=== PATIENT | female | born 1965 | race African-American/Black ===

== ENCOUNTER 2018-04-20 17:33 | Inpatient (IN) ==
[2018-04-20] MEDS ORDERED: NS 1,000 ML IV ONE (18:11)
[2018-04-20] MEDS ORDERED: SODIUM CHLORIDE 0.9% INJ ONE (18:12)
[2018-04-20] MEDS ORDERED: PROTONIX IV ONE (18:12)
[2018-04-20 18:14] LABS: BASO# 0.02 X1000 (0.0-0.2); BASO% 0.2 % (0.0-0.8); EOS# 0.14 X1000 (0.0-0.7); EOS% 1.5 % (0.0-10.0); HEMATOCRIT 24.1 % (37.0-47.0); HEMOGLOBIN 7.4 g/dL (12.0-16.0); IMM GRAN# 0.04 X1000 (0.0-0.04); IMM GRAN% 0.4 % (0.0-0.5); LYMPH# 4.29 X1000 (1.2-3.4); LYMPH% 44.6 % (20.5-51.1); MCH 26.5 PG (27-31); MCHC 30.7 g/dL (33-37); MCV 86.4 FL (81-99); MONO# 0.56 X1000 (0.11-0.59); MONO% 5.8 % (1.7-9.3); MPV 10.5 FL (7.4-10.4); NEUT# 4.56 X1000 (1.4-6.5); NEUT% 47.5 % (42.2-75.2); PLT 229 X1000 (130-400); RBC 2.79 XMIL (4.2-5.4); RDW 13.7 % (11.5-14.5); WBC 9.61 X1000 (4.8-10.8)
[2018-04-20 18:21] LABS: AGAP 10; ALB/GLOB RATIO 1.2; ALBUMIN 3.8 g/dL (3.5-5.0); ALKALINE PHOSPHATASE 98 U/L (32-104); BUN 23 mg/dL (8-22); CALCIUM 8.7 mg/dL (8.8-10.2); CHLORIDE 105 mmol/L (98-107); COSMO 286; ESTIMATED GFR > 60; GLUCOSE 150 mg/dL (70-104); GOT 15 U/L (10-30); GPT 13 U/L (10-36); POTASSIUM 3.8 mmol/L (3.5-5.1); SODIUM 140 mmol/L (136-145); TCO2 25 mmol/L (25-35); TOTAL BILIRUBIN 0.39 mg/dL (0.20-1.00)
[2018-04-20 19:22] LABS: INR 0.86; PROTIME 12.4 Seconds (11.0-16.0)
[2018-04-20 19:23] LABS: PTT 32.8 Seconds (22.3-41.8)
[2018-04-20 19:54] LABS: HEMATOCRIT 21.2 % (37.0-47.0); HEMOGLOBIN 6.3 g/dL (12.0-16.0)
[2018-04-20] MEDS: ZOFRAN IV PRN (20:30)
[2018-04-20] MEDS ORDERED: NS 1,000 ML IV SCH (20:30)
[2018-04-20 21:05] LABS: BASO# 0.02 X1000 (0.0-0.2); BASO% 0.2 % (0.0-0.8); EOS# 0.15 X1000 (0.0-0.7); EOS% 1.2 % (0.0-10.0); HEMATOCRIT 21.5 % (37.0-47.0); HEMOGLOBIN 6.6 g/dL (12.0-16.0); IMM GRAN# 0.05 X1000 (0.0-0.04); IMM GRAN% 0.4 % (0.0-0.5); LYMPH# 4.17 X1000 (1.2-3.4); LYMPH% 34.7 % (20.5-51.1); MCH 26.5 PG (27-31); MCHC 30.7 g/dL (33-37); MCV 86.3 FL (81-99); MONO# 0.91 X1000 (0.11-0.59); MONO% 7.6 % (1.7-9.3); MPV 11.1 FL (7.4-10.4); NEUT# 6.72 X1000 (1.4-6.5); NEUT% 55.9 % (42.2-75.2); PLT 208 X1000 (130-400); RBC 2.49 XMIL (4.2-5.4); RDW 13.6 % (11.5-14.5); WBC 12.02 X1000 (4.8-10.8)
[2018-04-20] MEDS: PROTONIX IV SCH (22:00)
[2018-04-20] MEDS: SODIUM CHLORIDE 0.9% INJ SCH (22:00)
[2018-04-20] MEDS ORDERED: MORPHINE IV ONE (23:13)
--- NOTE | 2018-04-21 01:29 | PROVIDER DOCUMENTATION ---
This chart was entered by Donn Monson Scribe, acting as scribe for Teressa Russell MD. HPI-Abdominal Pain/GI Problem - General Chief Complaint: GI Bleed Stated Complaint: [facility] REF Time Seen by Provider: 04/20/18 17:49 Source: patient Allergies/Adverse Reactions: Patient Allergies Allergy/AdvReac Type Severity Reaction Status Date / Time Penicillins Allergy ANAPHYLAXIS Verified 04/20/18 17:59 Home Medications: Home Medication List Medication Instructions Recorded Confirmed Last Taken Type Metoprolol [Lopressor] 50 mg PO QHS 08/11/15 04/20/18 01/23/16 21:30 History Methimazole 5 mg PO DAILY 12/17/15 04/20/18 01/23/16 21:30 History Amlodipine [Norvasc] 5 mg PO DAILY 04/20/18 04/20/18 Unknown History Atorvastatin Calcium [Lipitor] 40 mg PO DAILY 04/20/18 04/20/18 Unknown History Omeprazole 40 mg PO DAILY 04/20/18 04/20/18 Unknown History - History of Present Illness-ABD Nature of Presenting Problems: Pt is a 52 y/o F presents to the ED with chronic abdominal pain and has had black tarry stools followed with some bright red blood the past 4 days. She reports a hx of GI Ulcer bleed since she was a younger. She denies N/V at this time but reports some weakness and dizziness. Abdominal Pain Onset Location: reports: epigastric Pain Radiation: reports: no radiation Quality of Pain: reports: aching Severity in ED: reports: moderate Onset/Duration: reports: 4 days ago Timing: reports: still present Activities at Onset: reports: none, recent emotional stress Modifying Factors: improves with: nothing Associated Symptoms: reports: dizziness, weakness. denies: back/neck pain, constipation, fever/chills, nausea, vomiting Dark Stools Present?: reports: black, tarry, bright red blood Rectal Bleeding: reports: bright red blood on paper, blood mixed with stool Bruising or Bleeding Gums?: No Similar Symptoms Previously?: No Recently seen or treated by another doctor?: Yes Review of Systems - Adult - REVIEW OF SYSTEMS - ADULT Constitutional: reports: other (weakness). denies: chills, fever Cardiovascular: denies: chest pain, edema, palpitations Respiratory: denies: cough Gastrointestinal: reports: abdominal pain, rectal bleeding. denies: nausea, vomiting Neurological: reports: dizziness/vertigo. denies: headache/migraines Past History - Adult - PAST MEDICAL HISTORY-ADULT Review of Records: reports: Old Records Reviewed, Nursing Assessment Review, Medications Reviewed Major Childhood Illnesses: reports: denies history Cardiovascular: reports: HTN Respiratory: reports: denies history Gastrointestinal: reports: denies history Obstetrical/Gynecological: reports: denies history Genitourinary: reports: kidney stones Musculoskeletal: reports: denies history Neurological: reports: denies history Endocrine/Immune: reports: thyroid disorder Other Conditions: reports: denies history - PRIOR SURGERIES/PROCEDURES Surgical/Procedure History: reports: recent surgery, hysterectomy - PRIOR HOSPITALIZATIONS Prior Hospitalizations: reports: for similar symptoms - IMMUNIZATION STATUS Childhood Immunizations: See Nurse Assessment Flu Vaccine: See Nurse Assessment - FAMILY HISTORY Family History: reviewed, not pertinent - SOCIAL HISTORY Smoking: non-smoker Substance Use: none/never Living Situation: family Physical Exam-General - PHYSICAL EXAM-ADULT Initial Vital Signs Reviewed: Yes - CONSTITUTIONAL General Appearance: appears well, alert, no apparent distress - EYES Eyes: PERRL/EOMI, pink conjunctivae - HEAD, EARS, NOSE, MOUTH & THROAT HENMT: moist mucous membranes, normal ENT inspection, pharynx normal - NECK Neck: non-tender, full range of motion, supple, normal inspection - RESPIRATORY Respiratory: lungs clear, normal breath sounds, no pleuratic chest pain, no respiratory distress, no accessory muscle use - CARDIOVASCULAR Cardiovascular: normal peripheral pulses, regular rate, rhythm - GASTROINTESTINAL (ABDOMEN) Abdominal Exam: normal bowel sounds, soft, tenderness (Epigastric) - GENITOURINARY Rectal Exam: normal rectal tone, other (black tarry stool Multimedia Designer nurse Tovar) - MUSCULOSKELETAL Back Exam: normal inspection, no CVA tenderness, no vertebral tenderness Extremity: normal range of motion, non-tender, normal gait, normal inspection, no pedal edema - SKIN Integumentary: normal color, normal turgor, warm/dry - NEUROLOGIC Neurologic: grossly normal, no motor/sensory deficits - PSYCHIATRIC Psych/Mental Status: normal mood/affect, normal thought content, normal thought process, oriented x 3 Progress - PLAN OF CARE/RESULTS Progress/Plan/Lab Results: Vital Signs - 8 hr 04/20/18 17:42 Temperature 98.2 F Pulse Rate 93 H Respiratory Rate 17 Blood Pressure 124/69 O2 Sat by Pulse Oximetry 100 Orders Category Date Time Status CBC WITH ELECTRONIC DIFF [HEME] Stat Lab 04/20/18 17:48 Results COMPREHENSIVE METABOLIC PANEL [CHEM] Stat Lab 04/20/18 17:48 Received PROTIME WITH INR [COAG] Stat Lab 04/20/18 17:48 Received PTT [COAG] Stat Lab 04/20/18 17:48 Received TYPE & SCREEN [BBK] Stat Lab 04/20/18 17:48 Results GI Bleed (possible) Stat Oth 04/20/18 17:45 Ordered Result Diagrams: 04/20/18 20:40 04/20/18 17:48 - CONSULTS/PCP/HOSPITALIST Notification #1 *Consult/PCP/Hospitalist*: MAKI Ashraf admit for Dr. Pito Dill Time Discussed: 18:38 Consult Disposition: Admit Departure - Departure Date of Disposition Decision: 04/20/18 Time of Disposition Decision: 18:37 DIAGNOSIS: GI bleed Qualifiers: GI bleed type/associated pathology: unspecified gastrointestinal hemorrhage type Qualified Code(s): K92.2 - Gastrointestinal hemorrhage, unspecified Disposition: ADMITTED INPATIENT 09 Certified Medical Emergency: Emergent Condition: Serious - Critical Care Note This patient required my direct & personal management of CC.: No Attestation - Physician/ PANKAJ Attestation Patient care was provided by Advanced Practice Provider:: No The physician spent face to face time with patient:: Yes Advanced Practice Provider documentation review:: Supervising physician onsite and consulted in the evaluation and care of this patient. The physician did have a face to face encounter with the patient. This chart was documented by the indicated scribe, (Donn Monson Scribe) and accurately reflects the services I performed and decisions made by me, Teressa Russell MD, as attested by the provider's signature.
[2018-04-21 02:28] LABS: BASO# 0.02 X1000 (0.0-0.2); BASO% 0.2 % (0.0-0.8); EOS# 0.17 X1000 (0.0-0.7); EOS% 1.5 % (0.0-10.0); HEMATOCRIT 26.5 % (37.0-47.0); HEMOGLOBIN 8.3 g/dL (12.0-16.0); IMM GRAN# 0.04 X1000 (0.0-0.04); IMM GRAN% 0.4 % (0.0-0.5); LYMPH# 4.44 X1000 (1.2-3.4); MCH 27.7 PG (27-31); MCHC 31.3 g/dL (33-37); MCV 88.3 FL (81-99); MONO# 0.89 X1000 (0.11-0.59); NEUT# 5.55 X1000 (1.4-6.5); NEUT% 49.9 % (42.2-75.2); PLT 178 X1000 (130-400); RDW 14.1 % (11.5-14.5); WBC 11.11 X1000 (4.8-10.8)
[2018-04-21 05:28] LABS: INR 0.9; PROTIME 12.8 Seconds (11.0-16.0)
[2018-04-21 05:35] LABS: BASO# 0.01 X1000 (0.0-0.2); BASO% 0.1 % (0.0-0.8); EOS# 0.16 X1000 (0.0-0.7); EOS% 1.6 % (0.0-10.0); HEMATOCRIT 24.9 % (37.0-47.0); HEMOGLOBIN 7.7 g/dL (12.0-16.0); IMM GRAN# 0.05 X1000 (0.0-0.04); IMM GRAN% 0.5 % (0.0-0.5); LYMPH# 3.91 X1000 (1.2-3.4); LYMPH% 39.3 % (20.5-51.1); MCH 27.4 PG (27-31); MCHC 30.9 g/dL (33-37); MCV 88.6 FL (81-99); MONO# 0.86 X1000 (0.11-0.59); MONO% 8.6 % (1.7-9.3); MPV 10.9 FL (7.4-10.4); NEUT# 4.97 X1000 (1.4-6.5); NEUT% 49.9 % (42.2-75.2); PLT 167 X1000 (130-400); RBC 2.81 XMIL (4.2-5.4); RDW 14.2 % (11.5-14.5); WBC 9.96 X1000 (4.8-10.8)
[2018-04-21 05:41] LABS: AGAP 7; BUN 19 mg/dL (8-22); CALCIUM 7.9 mg/dL (8.8-10.2); CHLORIDE 113 mmol/L (98-107); COSMO 288; ESTIMATED GFR > 60; GLUCOSE 114 mg/dL (70-104); POTASSIUM 3.8 mmol/L (3.5-5.1); SODIUM 143 mmol/L (136-145); TCO2 23 mmol/L (25-35)
--- NOTE | 2018-04-21 06:44 | Diag Imaging Result Doc PS360 ---
EXAM: CHEST-PORTABLE HISTORY: low o2 sat TECHNIQUE: Portable chest single view COMPARISON: 08/13/2015 FINDINGS: The lungs are well expanded. The heart is not enlarged. The vessels are not distended. There are no infiltrates. No effusion identified. IMPRESSION: Negative exam. Electronically signed by Stanislav Camacho 04/21/2018 6:42 AM
[2018-04-21] MEDS: PROTONIX IV SCH ×2 (10:30→20:40)
[2018-04-21 10:37] LABS: BASO# 0.02 X1000 (0.0-0.2); BASO% 0.2 % (0.0-0.8); EOS# 0.23 X1000 (0.0-0.7); EOS% 2.2 % (0.0-10.0); HEMATOCRIT 30.4 % (37.0-47.0); HEMOGLOBIN 9.5 g/dL (12.0-16.0); IMM GRAN# 0.06 X1000 (0.0-0.04); IMM GRAN% 0.6 % (0.0-0.5); LYMPH# 4.18 X1000 (1.2-3.4); LYMPH% 39.2 % (20.5-51.1); MCH 27.7 PG (27-31); MCHC 31.3 g/dL (33-37); MCV 88.6 FL (81-99); MONO% 8.4 % (1.7-9.3); MPV 10.7 FL (7.4-10.4); NEUT# 5.27 X1000 (1.4-6.5); NEUT% 49.4 % (42.2-75.2); PLT 176 X1000 (130-400); RBC 3.43 XMIL (4.2-5.4); RDW 14.1 % (11.5-14.5); WBC 10.66 X1000 (4.8-10.8)
--- NOTE | 2018-04-21 10:45 | PROGRESS NOTE ---
DATE: 04/21/2018 SUBJECTIVE: This morning Ms. Kerr refers to be doing a little better. Denies any more rectal bleed. Ms. Kerr has medical history of remote ulcers in the stomach, when she was an adolescent. She uses Advil/Aleve at least once per month for pains. She is hypertensive and has thyroid issues. She came to the emergency department from her doctor's office ( Dr. Ramirez) because of extremely low blood count. Over here in the emergency room yesterday, she was found to have a hemoglobin of 7.4, which went down to 6.3. The patient is currently status post 3 PRBC transfusion, and she is pending GI consult. OBJECTIVE: Vital signs: Blood pressure is 107/70, pulse is 85, respirations is 16, temperature 98.3 degrees. General: Ms. Kerr is a 52-year-old female. She was in bed. She was not in any cardiopulmonary distress. HEENT: Mucosa is pink and moist. Anicteric. Acyanotic. Neck: Supple. I did not see any JVD. No thyromegaly. Respiratory : There was good air entry bilaterally. No crepitations. No rhonchi. Cardiovascular: Regular rate and rhythm. No murmurs, no rubs, no gallops. Abdomen: Soft, nontender. Bowel sounds present. There is old laparoscopic scars on the umbilical area. Extremities: No pedal edema. CASE RESOLUTION SPECIALIST : Patient is awake, alert, and oriented. There is no focal neurological deficit. LABORATORY DATA: WBC is 9.96, hemoglobin is 7.7, platelet count is 167,000. Chemistry is also reviewed, is unremarkable. TSH is 6.06. The patient's coagulation panel is normal. DIAGNOSTIC STUDIES: A chest x-ray, which was done yesterday, shows no infiltrates. ASSESSMENT: 1. Acute symptomatic anemia secondary to gastrointestinal bleed. Patient is status post 3 packed red blood cell transfusion. 2. Gastrointestinal bleed. Etiology is unclear. Suspicion could be a bleeding peptic ulcer or a bleeding gastritis from nonsteroidal anti-inflammatory use. The patient is pending the patient is pending GI evaluation. She is currently on proton-pump inhibitor b.i.d. 3. Hypertension, controlled. 4. History of hyperthyroidism. We will continue with her thyroid medications. TSH is a little bit high, which will indicate possibly of over supplementation. We will, however, make her repeat this at a later date and make changes accordingly. Patient is on methimazole 5 mg p.o. daily. cc: MD JELLY Bass
--- NOTE | 2018-04-21 13:30 | GASTROENTEROLOGY CONSULTATION ---
DATE: 04/21/2018 REASON FOR CONSULTATION: Upper gastrointestinal bleed and melena. HISTORY OF PRESENT ILLNESS: Mrs. Kerr is a 52-year-old woman with a history of hyperthyroidism, hypertension, remote history of peptic ulcer disease diagnosed during adolescence, who presents with 4 days of melenic stools and cramping abdominal pain. She reports associated dyspnea on exertion. No nausea, vomiting, fever, chest pain, hematemesis, bright red blood per rectum, weight loss. She denies any blood thinner use or aspirin. She occasionally takes Advil very rarely. She does report having an endoscopy and colonoscopy over 10 years ago for "abdominal issues." PAST MEDICAL HISTORY: 1. Hyperthyroidism. 2. Hypertension. 3. History of peptic ulcer disease. 4. GERD. 5. Hyperlipidemia. PAST SURGICAL HISTORY: No pertinent GI surgical history. FAMILY HISTORY: No family history of GI diseases or malignancies. SOCIAL HISTORY: No smoking, alcohol, or drug use. ALLERGIES: No known allergies. MEDICATIONS: 1. Metoprolol. 2. Methimazole. 3. Norvasc. 4. Lipitor. REVIEW OF SYSTEMS: As per HPI, otherwise 12-point review of systems negative. PHYSICAL EXAMINATION: Vital Signs: Temperature 98.2, heart rate 79, respiratory rate 18, blood pressure 96/65, saturation 100% on room air. General: Awake, alert and oriented woman in no acute distress. Pleasant. HEENT: Anicteric. Moist mucous membranes. Extraocular movements intact. Oropharynx clear. Neck: No lymphadenopathy. No thyromegaly. Chest: Clear to auscultation bilaterally. No wheezing, rales or rhonchi. Cardiac: Regular rate and rhythm. No murmurs, rubs or gallops. Abdomen: Soft, nontender, nondistended. Normoactive bowel sounds. No rebound or guarding. No ascites. Extremities: No clubbing, cyanosis, edema. Neurologic: Nonfocal. Psychiatric: Normal affect. LABORATORY DATA: White count 12.0, hemoglobin 6.6, corrected to 9.5 after 3 units of packed red blood cells, platelets 208,000, MCV 86, INR 0.86. Sodium 140, potassium 3.8, chloride 105, bicarb 25, BUN 23, creatinine 1.0. LFTs are within normal limits. TSH 6.06. Chest x-ray is normal. ASSESSMENT AND PLAN: Mrs. Kerr is a 52-year-old woman with a history of hyperthyroidism, hypertension, hyperlipidemia, gastroesophageal reflux disease, remote history of peptic ulcer disease, who presents with acute blood loss anemia in the setting of melena and rare nonsteroidal anti-inflammatory use. Her upper gastrointestinal bleeding is likely from peptic ulcer disease. Other etiologies include angiodysplasia, duodenitis, esophagitis, small bowel ulceration, unlikely to be a lower gastrointestinal bleed. No personal history of liver disease, making variceal bleeding unlikely. Currently, her vital signs are stable and hemoglobin has responded appropriately to blood transfusion as well as fluid resuscitation. She is currently on proton pump inhibitor IV b.i.d. 1. Upper gastrointestinal bleed. The patient is currently n.p.o. We will start the patient on a clear liquid diet given her hemodynamic stability and plan for esophagogastroduodenoscopy tomorrow morning. Will keep the patient n.p.o. after midnight. Continue proton pump inhibitor IV b.i.d. Continue fluid resuscitation. Maintain 2 large peripheral IVs. Hold any anticoagulation or blood thinners. Trend hemoglobin every 6-8 hours. Transfuse for a goal hemoglobin between 7 and 8. 2. Hypertension. Blood pressure is normal currently. Withhold home blood pressure medications in the setting of upper gastrointestinal bleed. 3. Hyperthyroidism. Continue the patient's home medications. 4. Gastroesophageal reflux disease. Proton pump inhibitor as above. Thank you for this consult. Will follow with you. Please call with any questions or concerns.
[2018-04-21 14:04] LABS: BASO# 0.02 X1000 (0.0-0.2); BASO% 0.2 % (0.0-0.8); EOS# 0.23 X1000 (0.0-0.7); EOS% 2.5 % (0.0-10.0); HEMOGLOBIN 8.8 g/dL (12.0-16.0); IMM GRAN# 0.06 X1000 (0.0-0.04); IMM GRAN% 0.7 % (0.0-0.5); LYMPH% 36.1 % (20.5-51.1); MCH 27.8 PG (27-31); MCHC 31.4 g/dL (33-37); MCV 88.6 FL (81-99); MONO# 0.72 X1000 (0.11-0.59); MONO% 7.9 % (1.7-9.3); MPV 10.5 FL (7.4-10.4); NEUT# 4.81 X1000 (1.4-6.5); NEUT% 52.6 % (42.2-75.2); PLT 164 X1000 (130-400); RBC 3.16 XMIL (4.2-5.4); RDW 13.9 % (11.5-14.5); WBC 9.14 X1000 (4.8-10.8)
[2018-04-21 18:03] LABS: BASO# 0.02 X1000 (0.0-0.2); BASO% 0.2 % (0.0-0.8); EOS# 0.29 X1000 (0.0-0.7); EOS% 2.7 % (0.0-10.0); HEMOGLOBIN 8.8 g/dL (12.0-16.0); IMM GRAN# 0.07 X1000 (0.0-0.04); IMM GRAN% 0.7 % (0.0-0.5); LYMPH# 4.19 X1000 (1.2-3.4); LYMPH% 39.6 % (20.5-51.1); MCH 27.6 PG (27-31); MCHC 31.4 g/dL (33-37); MCV 87.8 FL (81-99); MONO# 0.95 X1000 (0.11-0.59); MPV 10.5 FL (7.4-10.4); NEUT# 5.05 X1000 (1.4-6.5); NEUT% 47.8 % (42.2-75.2); PLT 170 X1000 (130-400); RBC 3.19 XMIL (4.2-5.4); RDW 14.1 % (11.5-14.5); WBC 10.57 X1000 (4.8-10.8)
[2018-04-21] MEDS ORDERED: NS 50 ML ONE (20:33)
[2018-04-21] MEDS: SODIUM CHLORIDE 0.9% INJ SCH (20:40)
--- NOTE | 2018-04-21 20:52 | HISTORY AND PHYSICAL ---
DATE OF ADMISSION: 04/20/2018 CHIEF COMPLAINT/HISTORY OF PRESENT ILLNESS: Abdominal pain which is mostly chronic with black, tarry stools. She has had some episodes of bright red blood over the past four days. She has a history of peptic ulcer disease with a bleed when she was younger. She also has a history and hyperthyroidism, hypertension, GERD, and hyperlipidemia. She denied hematemesis or nausea or vomiting. She did state that she was weak or fatigued with some dizziness when she stood. In her initial workup, her hemoglobin and hematocrit were noted to be 6.6 and 21.5, respectively. They continue to fluctuate even with blood transfusions that were started in the emergency room. She will receive a total of three units of packed red blood cells and will be admitted for GI consultation. PAST MEDICAL HISTORY: See HPI. PREVIOUS SURGICAL HISTORY: Hysterectomy, debridement of a left pretibial wound. SOCIAL HISTORY: No tobacco, alcohol or illicit drugs. FAMILY HISTORY: Denies history of pertinent GI diseases or malignancies in first-degree relatives. HOME MEDICATIONS: List of home medications has not been reconciled. The order was placed for nursing to reconcile home medications. I believe she does take metoprolol, methimazole, Norvasc, and Lipitor. I do not know the dosages. ALLERGIES: No known drug allergies. REVIEW OF SYSTEMS: A 14-point review of systems was conducted with the patient. Pertinent positives listed above in the HPI, all other systems reviewed and found to be negative. PHYSICAL EXAMINATION: VITAL SIGNS: Temperature 98.2, pulse 93, respirations 16, blood pressure 106/60 , oxygen saturation 100% on room air. GENERAL: A 52-year-old female lying on the stretcher, answers all questions appropriately. She is alert and oriented x3, appears to be in no acute distress, very pleasant. HEENT: Head is atraumatic, normocephalic. Pupils are equal, round and reactive to light. Extraocular eye movements intact. Sclerae are anicteric. Conjunctivae is pale. Oral mucosa is moist. NECK: Supple. No JVD. No thyromegaly. Trachea is midline. CARDIAC: S1 and S2 appreciated. No murmurs, gallops, or rubs. LUNGS: Clear to auscultation bilaterally. No rhonchi, wheezes, or rales. Symmetric rise and fall with respirations. ABDOMEN: Soft, nondistended. Diffusely tender to palpation. Bowel sounds present in all four quadrants, normoactive. No pulsatile mass. No organomegaly. EXTREMITIES: No clubbing, cyanosis, or edema. 1+ pedal pulses bilaterally. NEUROLOGICAL: No focal neuro deficits, otherwise nonfocal examination. SKIN: Warm, dry and intact. Pale. LABORATORY DATA:WBC 12.02, hemoglobin 6.6, hematocrit 21.5, platelet count 208, 000. Sodium 143, potassium 3.8, chloride 113, BUN 23, creatinine 1, glucose 150. ASSESSMENT AND PLAN: 1. Upper gastrointestinal bleed. Will consult Gastroenterology. Protonix 40 mg intravenously every 24 hours. The patient will be typed and screened. Plan to give her three units of packed red blood cells as the night goes on, will transfuse two now. Will recheck hemoglobin and hematocrit with serial checks and likely transfuse the third later this morning. 2. Hypertension. The patient is normotensive because of her acute blood loss. Will hold off on any medications at this time. 3. Gastroesophageal reflux disease. Protonix as noted above. 4. Hyperthyroidism. List of home medications is being reconciled. This can be restarted when appropriate. Further recommendations per the patient's clinical course. Dictated by STEPHAN King for Pito Dill MD I have performed a face to face diagnostic evaluation. Labs /Xrays - reviewed. Exam- Abd- soft A/P- GI Bleed- Admit, NPO, IV protonix, GI Consult. Fuentes Gallardo cc: STEPHAN King MD Marlin D. Gill, MD [facility] HOSPITALDenisse
[2018-04-22 07:16] LABS: BASO# 0.01 X1000 (0.0-0.2); BASO% 0.1 % (0.0-0.8); EOS# 0.38 X1000 (0.0-0.7); EOS% 4.4 % (0.0-10.0); HEMATOCRIT 26.6 % (37.0-47.0); HEMOGLOBIN 8.3 g/dL (12.0-16.0); IMM GRAN# 0.03 X1000 (0.0-0.04); IMM GRAN% 0.3 % (0.0-0.5); LYMPH# 3.04 X1000 (1.2-3.4); LYMPH% 35.2 % (20.5-51.1); MCH 27.7 PG (27-31); MCHC 31.2 g/dL (33-37); MCV 88.7 FL (81-99); MONO# 0.67 X1000 (0.11-0.59); MONO% 7.8 % (1.7-9.3); MPV 10.8 FL (7.4-10.4); NEUT% 52.2 % (42.2-75.2); PLT 175 X1000 (130-400); WBC 8.63 X1000 (4.8-10.8)
[2018-04-22 07:50] LABS: AGAP 9; BUN 15 mg/dL (8-22); CALCIUM 8.3 mg/dL (8.8-10.2); CHLORIDE 109 mmol/L (98-107); COSMO 284; CREATININE 0.9 mg/dL (0.5-0.9); ESTIMATED GFR > 60; GLUCOSE 94 mg/dL (70-104); POTASSIUM 3.8 mmol/L (3.5-5.1); SODIUM 142 mmol/L (136-145); TCO2 24 mmol/L (25-35)
[2018-04-22] MEDS: PROTONIX IV SCH ×2 (08:54→20:03)
[2018-04-22] MEDS ORDERED: DIPRIVAN 1% ONE ×2 (09:06→09:38)
[2018-04-22] MEDS ORDERED: XYLOCAINE-MPF 2% ONE (09:06)
[2018-04-22] MEDS ORDERED: VERSED ONE (09:16)
--- NOTE | 2018-04-22 10:44 | OPERATIVE NOTE ---
PROCEDURE DATE : 04/22/2018 PROCEDURE: Upper endoscopy. INDICATIONS: Melena, blood loss anemia. PREOPERATIVE DIAGNOSIS: Melena, blood loss anemia. ANESTHESIA: Monitored anesthesia care. DESCRIPTION OF PROCEDURE: An upper endoscope was passed through the oropharynx to the extent of the second portion of the duodenum without difficulty. The scope was slowly withdrawn with good visualization of the lumen. Retroflexion was performed in the stomach. There were no obvious signs of GI bleeding. The scope was withdrawn from the patient without difficulty. FINDINGS: Normal esophagogastroduodenoscopy. COMPLICATIONS: None. ESTIMATED BLOOD LOSS: None. SPECIMEN: None. POSTOPERATIVE DIAGNOSIS: Blood loss anemia, melena, normal esophagogastroduodenoscopy PLAN: Will resume a clear liquid diet and plan for diagnostic colonoscopy tomorrow. [facility]ITAL[facility]
[2018-04-22] MEDS ORDERED: TYLENOL PO PRN (13:19)
[2018-04-22] MEDS ORDERED: GOLYTELY PO ONE (18:00)
--- NOTE | 2018-04-22 19:04 | PROGRESS NOTE ---
DATE: 04/22/2018 SUBJECTIVE: This morning, Ms. Kerr refers to be doing fairly okay. She was hurting in the abdomen. She had just come out of the EGD. She was some told that there was really nothing on the EGD, so she would have to undergo colonoscopy tomorrow. OBJECTIVE: Vital signs: Blood pressure is 101/63, pulse of 83, respirations 16, temperature is 97.6 degrees. General: Ms. Kerr is a 52-year-old female. She was in bed. She was in mild painful distress. Mucosa is pink and moist. Anicteric. Acyanotic. Neck: Supple. Respiratory: Good air entry bilaterally. No crepitations. No rhonchi. Cardiovascular: Regular rate and rhythm. No murmurs, no rubs, no gallops. Gastrointestinal: Abdomen was soft, minimally tender in the epigastrium and the periumbilical area. Bowel sounds were present. There is an old laparoscopic scar on the umbilical area. Extremities: No pedal edema. Distal pulses present. DIRECTOR OF NUCLEAR MEDICINE: Patient is awake, alert, and oriented. There is no focal neurological deficit. LABORATORY DATA: WBC is 8.63, hemoglobin is 8.3, platelet count was 175,000 chemistry is also reviewed which is completely normal. Review of the EGD shows a normal EGD. ASSESSMENT: 1. Acute symptomatic anemia secondary to GI bleed. The patient is status post 3 PRBC transfusion. EGD has been done which is unremarkable. Patient is pending colonoscopy. 2. Gastrointestinal bleed. Etiology is unclear. We are pending colonoscopy tomorrow. 3. Hypertension is controlled. 4. History of hyperthyroidism. We will continue with the patient's home medication (methimazole). 5. Dyslipidemia. Patient is on atorvastatin. In general, I think Ms. Kerr is fairly stable. Hemoglobin and hematocrit has been fairly stable around 8 to 9. She has an unremarkable EGD, so there is a plan for colonoscopy tomorrow. We are going to continue with the bowel prep later on today. Keep her NPO for tomorrow's procedure. cc: Zay Ware MD
[2018-04-22] MEDS: SODIUM CHLORIDE 0.9% INJ SCH (20:03)
[2018-04-23] MEDS: ZOFRAN IV PRN (01:25)
[2018-04-23 06:39] LABS: BASO# 0.01 X1000 (0.0-0.2); BASO% 0.1 % (0.0-0.8); EOS# 0.38 X1000 (0.0-0.7); EOS% 4.8 % (0.0-10.0); HEMATOCRIT 24.8 % (37.0-47.0); HEMOGLOBIN 7.8 g/dL (12.0-16.0); LYMPH# 2.79 X1000 (1.2-3.4); LYMPH% 35.4 % (20.5-51.1); MCH 28.2 PG (27-31); MCHC 31.5 g/dL (33-37); MCV 89.5 FL (81-99); MONO% 8.9 % (1.7-9.3); NEUT% 50.8 % (42.2-75.2); PLT 197 X1000 (130-400); RBC 2.77 XMIL (4.2-5.4); WBC 7.88 X1000 (4.8-10.8)
[2018-04-23 06:49] LABS: AGAP 7; ALB/GLOB RATIO 1.3; ALBUMIN 3.3 g/dL (3.5-5.0); ALKALINE PHOSPHATASE 70 U/L (32-104); BUN 12 mg/dL (8-22); CALCIUM 8.4 mg/dL (8.8-10.2); CHLORIDE 108 mmol/L (98-107); COSMO 283; CREATININE 0.9 mg/dL (0.5-0.9); ESTIMATED GFR > 60; GLUCOSE 104 mg/dL (70-104); GOT 14 U/L (10-30); GPT 10 U/L (10-36); POTASSIUM 3.6 mmol/L (3.5-5.1); SODIUM 142 mmol/L (136-145); TCO2 27 mmol/L (25-35); TOTAL BILIRUBIN 0.73 mg/dL (0.20-1.00); TOTAL PROTEIN 5.9 g/dL (6.3-8.3)
[2018-04-23] MEDS: PROTONIX IV SCH ×2 (08:58→22:08)
[2018-04-23] MEDS: SODIUM CHLORIDE 0.9% INJ SCH ×2 (08:58→22:08)
[2018-04-23] MEDS ORDERED: DIPRIVAN 1% ONE ×2 (09:17→09:18)
[2018-04-23] MEDS ORDERED: XYLOCAINE-MPF 2% ONE (09:17)
[2018-04-23] MEDS ORDERED: VERSED ONE (09:18)
--- NOTE | 2018-04-23 12:48 | OPERATIVE NOTE ---
PROCEDURE DATE: 04/23/2018 REFERRING PHYSICIAN: Dr. Eric Knight. PRIMARY CARE DOCTOR: Dr. Analia Ramirez. TITLE OF PROCEDURE: Ileocolonoscopy. PREOPERATIVE DIAGNOSES: 1. Anemia. 2. Gastrointestinal bleed. 3. Negative esophagogastroduodenoscopy yesterday. 4. History of last colonoscopy 8 years ago. POSTOPERATIVE DIAGNOSES: 1. Normal terminal ileum. 2. Old blood and stool in the colon which was lavaged. 3. There was evidence of diverticulosis in the descending and sigmoid colon. 4. Evidence of internal hemorrhoids, grade 1. 5. No evidence of any colitis noted. 6. Fair bowel prep. 7. No evidence of active bleeding noted. COMPLICATIONS: None. ANESTHESIA: Monitored anesthesia care per the anesthesiologist. PROCEDURE: After informed consent, the patient explained the risks, benefits, indications, alternatives to those, the patient colonoscopy. The risks of the procedure, including infection, bleeding, pain, trauma to the surrounding structures, perforation, , were explained to the patient, among others, and she acknowledged and agreed to proceed. DESCRIPTION OF PROCEDURE: She was brought to the OR. She was placed in the left lateral position. Rectal exam was performed, which revealed normal rectal tone. No masses were felt. No blood on the examining finger. The colonoscope was introduced and was pushed all the way to the terminal ileum. Terminal ileum was normal. There was evidence of old blood throughout the colon. This was lavaged. The scattered stool throughout the colon was lavaged. There was no underlying colitis. There was evidence of diverticulosis in the descending and sigmoid colon. On retroflexion, the rectum revealed internal hemorrhoids, grade 1. The air was withdrawn. The patient tolerated this well. Currently monitored in the OR in stable condition. RECOMMENDATIONS: 1. The patient likely had diverticular bleeding. We will watch her hematocrit and transfuse as needed. If the hematocrit goes below 23%, the will transfuse. we will start on Iron C b.i.d. for 3 months. 2. We will start on Centrum Silver once a day for 3 months. 3. We will start on Metamucil 1 tablespoon once daily. 4. If the patient continues to have GI bleeding, then she may benefit from a video capsule endoscopy at [place]. 5. We will start her on a full liquid diet and advance as tolerated. The above plan discussed with the patient and family and all questions answered. Please call us with any questions. cc: MD Analia Miller MD MTDD
--- NOTE | 2018-04-23 14:37 | PROGRESS NOTE ---
DATE: 04/23/2018 SUBJECTIVE: This morning Ms. Kerr refers to be doing fairly okay. Denies any abdominal pain and there is no GI bleed. She is status post a colonoscopy today. OBJECTIVE: Vital signs: Blood pressure is 121/82, pulse is 84, respirations is 16, temperature 97.8 degrees. The patient was saturating 97% on room air. General: Ms. Kerr is a 52-year-old female. She is in bed, no distress. HEENT: Mucosa is pink and moist. Anicteric. Acyanotic. Neck: Supple. Chest: Good air entry bilateral. There were no crepitations. No rhonchi. Cardiovascular: Regular rate and rhythm. No murmurs. No rubs. No gallops. GI: Abdomen is soft, nontender. There is an old supraumbilical surgical scar from previous hysterectomy. Extremities: No pedal edema. Distal pulses are present. [employer] WORK[employer]: Patient is awake, alert, and oriented. There is no focal neurological deficit. LABORATORY DATA: WBC is 7.88, hemoglobin is 7.8, platelet count of 197,000. Chemistry is also reviewed; it is completely unremarkable. CURRENT MEDICATIONS: Have also been reviewed. ASSESSMENT: 1. Acute symptomatic anemia secondary to gastrointestinal bleed. Patient is status post 3 PRBC transfusion. Hemoglobin and hematocrit are fairly stable, but is trending down. 2. Gastrointestinal bleed. The patient is status post EGD and colonoscopy. EGD was unremarkable. However, the colonoscopy did reveal a lot of diverticulosis. Per the report, it appears this is what GI thinks is the source of the bleed. We will continue to trend the hemoglobin and hematocrit tomorrow. If it is fairly stable, I think we will be able to discharge her. The patient has been advised on measures to prevent any constipation. 3. Hypertension, controlled. 4. History of hyperthyroidism. Patient is on methimazole. 5. Dyslipidemia. Will continue with statin. PLAN: So in general, I think Ms. Kerr is fairly stable. We will check her hemoglobin and hematocrit tomorrow. If it is fairly stable or going up and there is no obvious ongoing blood loss, I think we will be able to discharge her to follow up with Dr. Milan on an outpatient basis. cc: Zay Ware MD
[2018-04-23] MEDS ORDERED: METAMUCIL PO SCH (21:00)
[2018-04-23] MEDS: ICAR-C PO SCH (22:08)
[2018-04-24 06:55] LABS: BASO# 0.01 X1000 (0.0-0.2); BASO% 0.1 % (0.0-0.8); EOS# 0.28 X1000 (0.0-0.7); EOS% 3.9 % (0.0-10.0); HEMATOCRIT 22.6 % (37.0-47.0); IMM GRAN# 0.02 X1000 (0.0-0.04); IMM GRAN% 0.3 % (0.0-0.5); LYMPH# 2.32 X1000 (1.2-3.4); LYMPH% 32.6 % (20.5-51.1); MCV 90.4 FL (81-99); MONO# 0.68 X1000 (0.11-0.59); MONO% 9.6 % (1.7-9.3); MPV 10.3 FL (7.4-10.4); NEUT% 53.5 % (42.2-75.2); PLT 215 X1000 (130-400); RDW 14.2 % (11.5-14.5); WBC 7.11 X1000 (4.8-10.8)
[2018-04-24] MEDS: ICAR-C PO SCH (08:30)
[2018-04-24] MEDS: SODIUM CHLORIDE 0.9% INJ SCH (08:30)
[2018-04-24] MEDS: CENTRUM SILVER PO SCH ×2 (08:30→11:03)
[2018-04-24] MEDS: PROTONIX IV SCH (08:30)
[2018-04-24] MEDS ORDERED: NS 500 ML IV ONE (09:00)
--- NOTE | 2018-04-24 10:55 | GASTROENTEROLOGY PROGRESS NOTE ---
DATE: 04/24/2018 SUBJECTIVE: The patient underwent diagnostic colonoscopy yesterday that revealed old blood throughout the colon, as well as hemorrhoids and diverticulosis without any evidence of active bleeding or lesion that would be responsible for her melena. No acute overnight events. The patient is afebrile. She denies any complaints this morning. She has not had a bowel movement since her colonoscopy. OBJECTIVE: Vital Signs: Temperature 97.6 degrees, heart rate 79, respiratory rate 14, blood pressure 107/67, O2 saturation 99% on room air. General: The patient is awake, alert, and oriented, in no acute distress. HEENT: Sclerae anicteric. Moist mucous membranes. Neck: No JVD. Cardiac: Regular rate and rhythm. No murmurs. Lungs: Clear to auscultation bilaterally. Abdomen: Soft, nontender, nondistended. Normoactive bowel sounds. No rebound or guarding. Extremities: No clubbing, cyanosis, edema. Neuro: Nonfocal. LABS: Hemoglobin from yesterday evening showed it was 7.0, normal platelets. ASSESSMENT AND PLAN: Ms. Kerr is a 52-year-old woman, with a history of hyperthyroidism, hypertension, hyperlipidemia, GERD and remote peptic ulcer disease, who presented with acute blood loss anemia in the setting of melena. She is status post EGD and colonoscopy that was only revealing for diverticulosis and hemorrhoids, but no obvious etiology for her melena. Her hemoglobin has nadired down to 7.0. She is currently asymptomatic, without chest pain, shortness of breath, lightheadedness, or dizziness. She is currently also not having any bowel movements, which is encouraging as luminal blood is cathartic. At this time I recommend that she continue PPI p.o. b.i.d. for now, avoid NSAIDs, and initiate ferrous sulfate 325 mg 3 times a day for the next couple of months until her hemoglobin normalizes. We will plan for outpatient capsule endoscopy. She should follow up with us in the [facility] upon discharge in the next 2 weeks. The patient is stable and ready for discharge from a GI standpoint. Please call with any questions or concerns.
[2018-04-24 11:08] VITALS: BP 142/70
--- NOTE | 2018-04-25 23:24 | DISCHARGE SUMMARY ---
ADMISSION DATE: 04/20/2018 DISCHARGE DATE: 04/24/2018 DISPOSITION: Is home. FOLLOWUP: 1. Will be with Dr. Mejia. 2. Analia Perez. CONSULTATION: GI was consulted, patient was seen by Dr. Milan followed up by Dr. Mejia. INVASIVE PROCEDURES: EGD was initially done which was normal, a colonoscopy was done by Dr. Milan which showed evidence of diverticulosis in the descending and sigmoid colon, evidence of internal hemorrhoids. No evidence of acute colitis and no evidence of acute bleeding noted. There is however old blood in the colon. The recommendation was that the patient had a diverticular bleeding. ADMISSION DIAGNOSIS: 1. Acute symptomatic anemia secondary to gastrointestinal bleed. 2. Gastrointestinal bleed, etiology is unclear. 3. Hypertension. 4. History of hyperthyroidism. DIAGNOSIS AT THE TIME OF DISCHARGE: 1. Acute symptomatic anemia secondary to gastrointestinal bleed. 2. Gastrointestinal bleed presumed to be diverticular in origin. 3. Hypertension controlled. 4. Dyslipidemia. 5. Hyperthyroidism, patient is on methimazole. 6. Overweight with body mass index of 29.1. DISCHARGE MEDICATIONS: 1. Metoprolol 50 mg p.o. at bedtime. 2. Methimazole 5 mg daily. 3. Atorvastatin 40 mg daily. 4. Amlodipine 5 mg daily. 5. Iron 1 tablet b.i.d. 6. Multivitamin. 7. Omeprazole 20 mg daily. 8. Metamucil 1 tablet at bedtime. PRESENTING COMPLAINT: Abdominal pain and black tarry stools. HISTORY PRESENTING COMPLAINT: Ms Kerr is a 52-year-old female history of GERD, hyperthyroidism, hypertension who presented to the emergency department because of fatigue, dizziness and history of tarry black stools. Patient was evaluated, was found to have hemoglobin level of 6.3 was admitted for symptomatic anemia. HOSPITAL COURSE: Ms Kerr stabilized got 3 units of PRBC and hemoglobin and hematocrit became stabilized. GI was consulted and EGD was done initially which was negative, a colonoscopy was done which did not really show an active bleed however Dr. Milan thinks that this is a diverticular bleed. In any case after the investigations Ms Kerr was feeling a lot better after the 3 PRBC transfusion, hemoglobin and hematocrit was kind of slowly going down but it normalized around 7. There was an order to transfuse her [address] Milan [address] Dr. Mejia thought that the 7 was okay and that the body will start to produce its own hemoglobin and no need to transfuse her. Ms Kerr at that point was completely asymptomatic, no more dizziness, no fatigue and no GI or gross bleeding. She was stable for discharge. Per Dr. Mejia patient could be discharged and will be followed up with them. There is also a plan for her to do a video capsule endoscopy in [place] which will be arranged by Dr. Mejia when patient follows up. At the time of the discharge her vitals blood pressure was 142/70, pulse is 87, respiration is 14, temperature 97.9 degrees. Patient was in stable condition. All the discharge instructions were discussed with her and she voiced understanding. The patient was advised to come to the emergency room or call 911 if the condition changes. TIME SPENT: 36 minutes. cc: MD Dr. Jackie Zavala
== END 2018-04-24 14:50 | disposition home or self-care (01) | DRG 378 ==
LOC: ED 17:33 → SUATTDRO 17:34 → EDIPHOLD 21:32 → 4N 04-21 22:20
PROVIDERS: ATTEND Internal Medicine
CPT/HCPCS: 36430; 71010; 71045; 80048; 80053; 82272; 84443; 84484; 85014; 85018; 85025; 85610; 85730; 86850; 86900; 86901; 86920; 94760; 94761; 94799; 96374; 96375; 99285; A9270; C9113; J2250; J2405; J7030; P9016; S0164